=== PATIENT | male | born 2000 | race Caucasian/White ===

== ENCOUNTER 2018-02-21 01:54 | Outpatient (CLI) | payer MEDICAID, SELFPAY ==
--- NOTE | 2018-02-21 08:08 | DI.US_ITS ---
SYMPTOM/DIAGNOSIS: LT TESTICULAR PAIN, LT TESTICLE SMALLER THAN RT, LT VARICOCELE, SCROTAL VARICES,I86.1,N50.812 SCROTAL ULTRASOUND: The right testicle measures 4.1 by 2.5 by 1.9 cm. and is acoustically homogeneous and has normal color flow. The right epididymis measures 9 by 7 by 7 mm. and has a normal appearance. The left testicle measures 3.4 by 2.5 by 1.9 cm. and is homogeneous with normal color flow. The left epididymis measures 14 by 10 by 6 mm. There is a 6 by 4 mm. epididymal head cyst versus a small spermatocele. There is a left varicocele in the lateral and upper portion of the left scrotum which measures up to 3.4 by 4.1 by 3.1 cm. and on valsalva maneuver, enhancement is identified. The vessels within the varicocele measure up to 3 mm. in diameter. The left testicle is being displaced medially and inferiorly due to the large varicocele. SUMMARY: A left scrotal varicocele is demonstrated. Please see the above discussion and the laboratory worksheet for the complete details of this study.
== END 2018-02-21 02:14 ==
PROVIDERS: PCP Family Medicine; Visit Provider Nurse Practitioner Gerontology
DX: I86.1 Scrotal varices (principal); N50.812 Left testicular pain
CPT/HCPCS: 76870

== ENCOUNTER 2018-02-28 10:41 | Day surgery (SDC) | payer MEDICAID, SELFPAY ==
[2018-02-28] VITALS (9 sets, daily range): BP systolic 80–127; BP diastolic 29–68; PULSE 54–90; RESP 11–18; TEMP 36.3–37.2; O2SAT 96–100
[2018-02-28] MEDS: Lactated Ringers 1,000 ML 80 ML IV (11:20)
[2018-02-28] MEDS: Acetaminophen 325 MG TAB 650 MG PO (11:38)
[2018-02-28] MEDS: Bupivacaine 0.25% Pres-Free 30 ML VIAL (12:03)
--- NOTE | 2018-02-28 12:39 | W.PM.DSUDISC ---
Discharge Plan Disposition Patient Disposition: HOME Condition: Stable Discharge Details Reason For Visit: (L) VARICOCELE Attending Provider: Hernán Mccullough Primary Care Provider: Izzy Iniguez Home Meds and New Rx's Prescriptions: No Action tramadol 50 mg tablet 50 mg PO Q6H PRN (Reason: pain) Qty: 20 RF: 0 Discharge Instructions Additional Instructions: F/U in office @ 1 week (before he heads back to [place] for school) OK to shower No lifting over 10 to 20 pounds until F/U visit OK to shower Stand Alone Forms: [facility] Post op Instructions, Rodriguez Harrington ([facility]) Activity:: see instructions Diet:: As Tolerated Discharge Orders Discharge Orders: Discharge Order (Routine); Ordered 02/28/18 Ordered By: Hernán Mccullough DS: Diagnosis Discharge Diagnosis (1) Left varicocele: Status: Acute
--- NOTE | 2018-02-28 17:07 | ROE_ITS ---
DATE OF OPERATION: February 28, 2018 PREOPERATIVE DIAGNOSIS: Left varicocele. POSTOPERATIVE DIAGNOSIS: Left varicocele. PROCEDURE: Left varicocelectomy. SURGEON: Hernán Mccullough M.D. ANESTHESIA: General. COMPLICATIONS: None. ESTIMATED BLOOD LOSS: Minimal. HISTORY: This is a 18-year-old gentleman who has a history of a left-sided scrotal mass. He was lala ntified as having a varicocele and a discrepancy in the testicular volume. He presents now for varic ocelectomy. OPERATIVE REPORT: The patient was brought to the Operating Room on 02/28/18. After successful induc tion of general anesthesia, he was placed in the supine position. His genitalia and low abdomen were prepped and draped. A left inguinal incision was made and extended down through the subcutaneous fat until the fascia of the external oblique was identified. The aponeurosis was opened and the spermatic cord was identifie d. The cord was isolated and secured with a [employer] drain. Beginning anteriorly, we dissected the spermatic cord and skeletonized the structures. We isolated t he vas deferens and vasal artery off to one side. We then identified multiple dilated veins. Each o f these was dissected free and divided between #2-0 silk ties. Once all veins were divided, we allowed the remainder of the cord to fall back within the left incisi on. A spermatic cord block was performed using 0.25% Marcaine without epinephrine. The aponeurosis of th e external oblique was then closed with a segment of running #3-0 Vicryl suture. The skin was closed with #4-0 subcuticular Vicryl. The patient tolerated this procedure well, with no complications. cc: Izzy Iniguez M.D.
== END 2018-02-28 14:10 | disposition home or self-care (01) ==
PROVIDERS: PCP Family Medicine; Visit Provider Urology
PROC: (CPT 55530; principal; 2018-02-28 14:30)
DX: I86.1 Scrotal varices (principal)
CPT/HCPCS: 55530; J0690; J1100; J1885; J2405